=== PATIENT | male | born 1960 | race Caucasian/White ===

== ENCOUNTER 2023-06-07 12:04 | Outpatient (CLI) | payer OTHER, SELFPAY ==
--- NOTE | ~2023-06-07 | XR_ITS ---
EXAMINATION: XR chest 2V DATE: 06/07/2023 13:54 INDICATION: Malignant neoplasm of the prostate TECHNIQUE: PA and lateral views of the chest are obtained. COMPARISON: 04/11/2016 FINDINGS: The lungs are free of acute opacities. No pleural effusion or pneumothorax. The cardiomedia stinal silhouette is normal. The visualized bones and soft tissues are unremarkable. IMPRESSION: 1. No acute cardiopulmonary abnormality. Reviewed, dictated and finalized at location L.
--- NOTE | 2023-06-07 13:23 | ECG_ITS ---
Measurements Intervals [place] Rate: 56 P: 73 NE: 156 QRS: -2 QRSD: 89 T: 39 QT: 412 QTc: 400 Interpretive Statements SINUS BRADYCARDIA CANNOT RULE OUT SEPTAL INFARCT, AGE INDETERMINATE BASELINE ARTIFACT- I, III, AVL, V4-V6 ABNORMAL ECG NO PREVIOUS ECG AVAILABLE FOR COMPARISON Electronically Signed On 06-07-2023 13:56:03 CDT by Mauro Rajput D.O.
[2023-06-07 14:08] LABS: Basophils Absolute Auto 0.1 K/mm3 (0.0-0.1); Basophils Percent Auto 1.1 % (0.2-1.2); Eosinophils Absolute Auto 0.3 K/mm3 (0-0.3); Eosinophils Percent Auto 4.4 % (0-4.4); Hematocrit 41.2 % (42.0-52.0); Hemoglobin 13.8 g/dL (14.0-18.0); Immature Granulocyte Absolute 0.02 K/mm3 (0.00-0.031); Immature Granulocyte Percent A 0.3 % (0-0.5); Lymphocytes Absolute Auto 2.58 K/mm3 (0.9-3.2); Lymphocytes Percent Auto 34.1 % (18.3-44.2); Mean Corpuscular HGB Conc 33.5 g/dl (32-36); Mean Corpuscular Hemoglobin 29.7 pg (26-34); Mean Corpuscular Volume 88.8 fl (80-100); Mean Platelet Volume 8.4 fl (7.4-10.4); Monocytes Absolute Auto 0.6 K/mm3 (0.1-0.6); Monocytes Percent Auto 7.9 % (2.6-8.5); Neutrophils Percent Auto 52.2 % (45.5-73.1); Platelet Count Result 258 k/mm3 (150-375); Red Blood Count 4.64 M/mm3 (4.6-6.20); Red Cell Distribution Width 12.8 % (11.5-14.5); White Blood Count 7.6 K/mm3 (4.5-10.0)
[2023-06-07 14:10] LABS: Appearance Urine Clear (Clear); Bilirubin Urine Negative (Negative); Blood Urine Negative (Negative); Color Urine Yellow (Yellow); Glucose Urine UA Negative (Negative); Ketones Urine Negative (Negative); Leukocyte Esterase Ur Negative LEU/UL (Negative); Nitrate Urine Negative (Negative); Protein Urine Negative (Negative); Specific Grav Ur 1.021 (1.001-1.035); Urobilinogen Urine 0.2 mg/dL (<2.0); pH Urine 5.5 (5.0-9.0)
[2023-06-07 14:14] LABS: Add Urine Microscopic? NO
[2023-06-07 14:19] LABS: Prothrombin Time 13.4 Seconds (11.1-14.7)
[2023-06-07 14:20] LABS: Partial Thromboplastin Time 28.9 SECONDS (22.3-36.8)
[2023-06-07 14:55] LABS: Alanine Aminotransferase 25 U/L (6-50); Albumin Level 4.7 g/dL (3.5-5.1); Alkaline Phosphatase 60 U/L (38-126); Anion Gap 9 mmol/L (8-16); Aspartate Amino Transferase 22 U/L (17-59); Bilirubin,Total 0.6 mg/dL (0.2-1.3); Blood Urea Nitrogen 22 mg/dL (9-20); Calcium 9.1 mg/dL (8.4-10.2); Carbon Dioxide 26 mmol/L (22-30); Chloride 101 mmol/L (98-107); Estimated Glomerular Filt Rate > 60; Glucose 96 mg/dL (65-110); Potassium 3.9 mmol/L (3.4-5.0); Sodium 136 mmol/L (137-145)
== END 2023-06-07 12:05 | disposition home or self-care (01) ==
LOC: ANHSURGERY 12:09
PROVIDERS: PCP Family Medicine; Visit Provider Urology
DX: C61 Malignant neoplasm of prostate (principal); Z01.818 Encounter for other preprocedural examination
CPT/HCPCS: 36415; 71046; 80053; 81003; 85025; 85610; 85730; 86850; 86900; 86901; 93005

== ENCOUNTER 2023-06-14 00:33 | Day surgery (SDC) | payer OTHER, SELFPAY ==
[2023-06-07 12:25] VITALS: BP 127/91; PULSE 65; RESP 16; TEMP 36.9; O2SAT 100; BMI 23.8
--- NOTE | 2023-06-07 12:37 | PC.NURSE ---
Report to the Outpatient Waiting Room, entrance under the green pavilion located off [facility], at time __6:00AM on date __06/14/23 . Planned Procedure Time: ___7:30AM . Time changes happen often and if your time is changed the preop area will call you the afternoon before. - You and your visitor will be asked to self-screen and do not enter if you have any COVID symptoms. - A mask is optional within the hospital at this time. Patients may have clear liquids (water, carbonated beverages, clear teas, apple juice) until 3 hours prior to surgery with a maximum of 20 ounces. - No food from midnight until time of surgery. Take the following medications with a SIP of water the morning of surgery: __NONE DO NOT STOP ANY OF YOUR OTHER PRESCRIPTION MEDICATIONS PRIOR TO SURGERY ?EXCEPT THE FOLLOWING Medications to discontinue per physician ____HOLD ALL VITAMINS/SUPPLEMENTS 7 DAYS PRE-OP PER DR BARFIELD Date to take last dose___06/07/[address] BARFIELD Please no make-up, nail brit[place] virgin islander, hairspray, perfume, deodorant, or body powder the day of surgery. No jewelry (including any body piercings) or valuables the day of surgery, leave them at home. Please take a shower or bath the night before, or the morning of, surgery with an antibacterial soap. Wear comfortable, loose fitting clothing. - Jewelry must be removed prior to entering the operating room. Rings and piercings that are not removed may be cut off. - The hospital will not accept responsibility for valuables. - Please leave all valuables, including medications, at home the day of surgery. If you are going home after surgery, a licensed canal driver must drive you home. - NO public transportation without another adult if you receive anesthesia. - We recommend that an adult stay with you for 24 hours following discharge. - We also recommend that you do not drive, make important decision, drink alcoholic beverages, or take any drugs that were not prescribed by your health care provider for at least 24 hours after your discharge time. Follow any additional instructions given to you from your surgeon. If you or anyone in your household have experienced Covid symptoms in the past week, please notify your surgeon or the nurse liaison at the phone number below for possible testing. Telephone instructions given to _PATIENT & WIFE and asked if any additional questions and then verbalized understanding. Patient advised to call surgeon office or pre surgery nurse liaison [phone] if any additional questions.
--- NOTE | 2023-06-07 15:42 | P.HP_ITS ---
H&P: HPI History of Present Illness Date/Time: 06/07/23 15:42 Chief Complaint: Prostate cancer Narrative: 62-year-old male was found to have a PSA of 7.9 in October 2022. Initial prostate ultrasound and biopsy after a prostate MRI revealed adenocarcinoma in 3 of 12 random cores and all 3 region of interest cores. Lala score was 3+3=6 and 3+4=7. This was consistent with a favorable intermediate risk prostate cancer in initial decision was to proceed with active surveillance. Since that time he has been started on a monoclonal antibody for multiple sclerosis. Follow-up prostate MRI then showed a new PI-RADS 4 lesion which is not presently been seen. After reconsider he now elects to proceed with robotic assisted radical prostatectomy with bilateral pelvic lymphadenectomy. He is aware the risks including, but not limited to, adverse cardiopulmonary events, rectal injury, urinary incontinence and erectile dysfunction. Review of Systems Cardiovascular: Cardiovascular: Denies chest pain, Denies lightheadedness, Denies palpitations and Denies dyspnea Respiratory: Respiratory: Denies dyspnea Gastrointestinal: Gastrointestinal: Denies diarrhea, Denies nausea and Denies vomiting Genitourinary: Genitourinary: Denies hematuria and Denies dysuria Integumentary/Breasts: Comments: Hx. multiple sclerosis Endocrine: Endocrine: Denies palpitations PMFSH Social History Social History Smoking status: Never smoker Alcohol intake: current Drinks per week: 14 Substance use: never Living arrangements: with family Additional living arrangements comments: Spiritual care concerns: Yes Meds Home Medications and Allergies Home Medications Medication Instructions Recorded Confirmed Type cholecalciferol (vitamin D3) 125 125 mcg PO DAILY 06/07/23 06/07/23 History mcg (5,000 unit) capsule multivit with minerals-iron 18 1 tablet PO DAILY 06/07/23 06/07/23 History mg-folic ac 400 mcg-vit K 25 mcg tablet (Adults Multivitamin) ocrelizumab 30 mg/mL intravenous 600 mg IV [id number] 06/07/23 06/07/23 History solution (Ocrevus) rosuvastatin 5 mg tablet 5 mg PO HS 06/07/23 06/07/23 History Allergies Allergy/AdvReac Type Severity Reaction Status Date / Time No Known Allergies Allergy Unverified 06/07/23 12:19 Vital Signs Vital Signs - 24 hr 06/07/23 12:25 Temperature 98.4 F Pulse Rate 65 Respiratory Rate 16 Blood Pressure 127/91 H Pulse Oximetry 100 Oxygen Delivery Room Air Exam Const: General: no acute distress Resp: Effort & Inspection: normal respiratory effort GI: Inspection: non-distended GI Palp: No abdominal tenderness and No Guarding due to palpation present (GI) Auscultation: normal bowel sounds Assessment and Plan Assessment and plan (1) Prostate cancer: Code(s): C61 - Malignant neoplasm of prostate Status: Acute Assessment and Plan: * Robotic assisted laparoscopic prostatectomy with bilateral pelvic lymphadenectomy
[2023-06-14] VITALS (11 sets, daily range): BP systolic 102–132; BP diastolic 71–88; PULSE 61–103; RESP 14–20; TEMP 36.2–36.7; O2SAT 96–100; BMI 23.4
--- NOTE | 2023-06-14 06:38 | WPDHPUPDATE1 ---
History and Physical Update Update Date/Time: 06/14/23 06:38 History and Physical has been reviewed, including an updated exam of the patient. There are NO changes in the patient's condition. Risks, benefits, and alternatives have been discussed and questions answered. Patient agrees to proceed with procedure.
--- NOTE | 2023-06-14 06:39 | WPDANESEPPF ---
Anes - Initial Pre Proc Eval Procedure: Operation Date: 06/14/23 07:30 Proposed Procedures p Robotic Assisted Laparoscopic Prostatectomy with Bilateral Pelvic Lymph Node Dissection - Moshe Rios MD Date/Time: 06/14/23 06:39 Surgeon: Moshe Rios MD Pre Op Diagnosis: prostate CA Patient Data Age: 62 Gender: M Height: 1.71 m Weight: 70 kg Last Vital Signs Temp 36.9 C 06/07/23 12:25 Pulse 65 06/07/23 12:25 Resp 16 06/07/23 12:25 BP 127/91 H 06/07/23 12:25 Pulse Ox 100 06/07/23 12:25 O2 Del Method Room Air 06/07/23 12:25 Allergies Allergy/AdvReac Type Severity Reaction Status Date / Time No Known Allergies Allergy Unverified 06/14/23 06:18 Home Medications Medication Instructions Recorded Confirmed Type cholecalciferol (vitamin D3) 125 125 mcg PO DAILY 06/07/23 06/14/23 History mcg (5,000 unit) capsule multivit with minerals-iron 18 1 tablet PO DAILY 06/07/23 06/14/23 History mg-folic ac 400 mcg-vit K 25 mcg tablet (Adults Multivitamin) ocrelizumab 30 mg/mL intravenous 600 mg IV [id number] 06/07/23 06/07/23 History solution (Ocrevus) rosuvastatin 5 mg tablet 5 mg PO HS 06/07/23 06/14/23 History Patient hx anesthesia problems: none Family hx anesthesia problems: none Results Review: All pre-operative results and documents have been reviewed as part of the pre-operative evaluation. [facility] Past Medical History Medical History (Updated 06/14/23 @ 06:40 by Zeyad Gudino MD) Multiple sclerosis Social History Social History Smoking status: Never smoker Alcohol intake: current Drinks per week: 14 Substance use: never Living arrangements: with family Additional living arrangements comments: Spiritual care concerns: Yes Anes - Eval Final PreProcedure Day of Procedure 06/14/23 06:39 Patient weight: normal Heart: regular rate and rhythm Lungs: clear to auscultation Airway: Mallampati scale class II Neurological: alert and oriented Last oral intake: >/= 8 hours ASA classification: III Emergent: no Anesthetic plan: proceed Anesthesia type and monitoring: general ETT and standard monitoring Results Review: All pre-operative results and documents have been reviewed as part of the pre-operative evaluation. Informed Consent: The patient's anesthetic plan and its attendant risks and benefits were discussed with the patient/family/POA. Questions were solicited and answers provided to the satisfaction of the patient/family/POA.
[2023-06-14] MEDS: ceFAZolin 2 GM/D5W 50 ML 2 GM/50 ML BAG IVPB (07:27)
--- NOTE | 2023-06-14 10:49 | W.PM.PROC2 ---
Procedure Note - Detailed Date of Procedure 06/14/23 Pre-op Diagnosis Prostate CA Post-op Diagnosis Same Procedure Performed Robotic-assisted, nerve-sparing radical prostatectomy, bilateral pelvic lymphadenectomy Surgeon Moshe Rios MD Pharmacy Clinical Coordinator LAVELLE Briones Anesthesia General Description of Procedure The patient was brought to the operative suite, where he was prepped and draped in routine sterile fashion while in a dorsal lithotomy, deep Trendelenburg position. A supraumbilical 10 mm trocar was placed after insufflation of the abdomen with a Veress needle. Three robotic ports were then placed under direct vision. Two of these were placed in the right lower quadrant - 10 cm and 20 cm lateral to, and in line with, the umbilicus. A third robotic trocar was placed 10 cm to the left of the umbilicus, and 20 cm to the left of the umbilicus, a 12 mm standard laparoscopic trocar was placed to be used as an real estate legal assistant port. Lastly, a 5 mm trocar was placed in the left upper quadrant midway between the umbilicus and the left robotic trocar. Attention was then turned to the prostatectomy. I opted for a posterior approach in this patient. An incision was made in the parietal peritoneum along the posterior bladder/posterior prostate about 2 cm above the reflection of the peritoneum over the anterior rectum. The seminal vesicles and vas deferens were immediately identified. Dissection is undertaken in a fashion so as to avoid electrocautery as much as possible, particularly near the tips of the seminal vesicles. Dissection was also carried out in the midline so as to avoid any encounters with the ureters. The vas deferens and the seminal vesicles were dissected in their entirety to the base of the prostate. The plane anterior to Denoviller's fascia, anterior to the rectum and posterior to the prostate was then developed. I then dropped the bladder by incising the anterior parietal peritoneum just lateral to the median umbilical ligaments bilaterally. The bladder was dropped from the anterior abdominal and pelvic wall. The endopelvic fascia was identified and incised bilaterally, allowing for dissection of the posterior-lateral aspect of the prostate. The puboprostatic ligaments were transected near their origin from the posterior pubic ramus. This posterior lateral dissection of the prostate is also undertaken in a fashion so as to avoid electrocautery as much as possible. The dorsal vein of the penis is then secured with an 0 -Vicryl ligature. Attention is then turned to the bladder neck. The anterior bladder neck is incised at the vesico-prostatic junction. The previously placed urethral catheter was drawn through the urethrotomy. A very small bladder neck was maintained throughout the remainder of this dissection. The posterior bladder neck was incised in a fashion so as to avoid any injury to the ureteral orifices. Again, the small aperture of the bladder neck was maintained. The previously dissected vas deferens and the seminal vesicles were brought through the posterior bladder neck incision. The lateral prostatic pedicles were then carefully dissected from the lateral aspect of the prostate bilaterally. The prostatic pedicles were secured with Weck clips and transected. The neurovascular bundles were carefully dissected from the posterior-lateral aspect of the prostate. The dorsal vein of the penis was incised with electrocautery. Using cold scissors, the urethra was incised. After withdrawing the previously placed urethral catheter, the posterior urethra was sharply incised, as was the rectalurethralis muscle. Attention was then turned to an extended bilateral pelvic lymphadenectomy. The limits of this dissection were similar bilaterally. Specifically, the limits were the bifurcation of the common iliac vein proximally, the inguinal ligament distally, the obturator nerve posteriorly and the anterior aspect to the external iliac artery
[2023-06-14] MEDS: LACTATED RINGERS 1,000 ML 30 ML IV CONT ×2 (10:58)
--- NOTE | 2023-06-14 13:34 | ADMGEN ---
This patient, Mykel Pacheco, was admitted to 3 [facility] Surg Room 309-01. Patient/family oriented to hospital policies and general routines including ID bracelet, bed and alarms, visiting hours, pain management, procedures, bathroom and other care routines, personal items, smoking policy, room service/diet, and visiting hours. Information on how to activate the Rapid Response Team has been discussed. Patient/Family are encouraged to report perceived risks to care and to ask questions if they do not understand what they are told or what they should do.
[2023-06-14] MEDS: HYDROcodone/acetaminophen (*CRX) 5-325 MG TABLET 1 TAB PO ×2 (16:25→20:21)
[2023-06-14] MEDS: ONDANSETRON INJ 4 MG/2 ML VIAL IV PUSH (16:26)
[2023-06-15 00:53] VITALS: BP 113/78; PULSE 76; RESP 12; TEMP 36.9; O2SAT 99
[2023-06-15 05:35] VITALS: BP 123/78; PULSE 84; RESP 14; TEMP 37.3; O2SAT 98
[2023-06-15 06:23] LABS: Hematocrit 33.2 % (42.0-52.0); Hemoglobin 11.2 g/dL (14.0-18.0)
[2023-06-15 06:35] LABS: Anion Gap 2 mmol/L (8-16); Blood Urea Nitrogen 13 mg/dL (9-20); Calcium 8.6 mg/dL (8.4-10.2); Carbon Dioxide 29 mmol/L (22-30); Chloride 103 mmol/L (98-107); Estimated CRCL calculation 81 ml/min; Estimated Glomerular Filt Rate > 60; Glucose 110 mg/dL (65-110); Potassium 3.9 mmol/L (3.4-5.0); Sodium 134 mmol/L (137-145)
--- NOTE | 2023-06-15 07:42 | WPDUROPN2 ---
Progress Note: A&P Assessment and Plan (1) Prostate cancer: Code(s): C61 - Malignant neoplasm of prostate Status: Acute Assessment and Plan: Doing well POD #1 Increase diet/ambulation Likely home later today. Subjective Subjective Date/Time Seen: 06/15/23 07:42 Interval history: Comfortable - should pain and nausea have resolved overnight Review of Systems Cardiovascular: Cardiovascular: Denies chest pain, Denies lightheadedness, Denies palpitations and Denies dyspnea Respiratory: Respiratory: Denies dyspnea Gastrointestinal: Gastrointestinal: Denies diarrhea, Denies nausea and Denies vomiting Genitourinary: Genitourinary: Denies hematuria and Denies dysuria Endocrine: Endocrine: Denies palpitations Exam Const: General: no acute distress Resp: Effort & Inspection: normal respiratory effort GI: Inspection: non-distended GI Palp: No abdominal tenderness and No Guarding due to palpation present (GI) Auscultation: normal bowel sounds Objective Data Vital Signs Vital Signs: Vital Signs - 24 hr 06/14/23 10:48 06/14/23 11:00 06/14/23 11:15 Temperature Pulse Rate 103 H 90 86 Respiratory Rate 16 15 20 Blood Pressure 113/88 117/81 104/77 Pulse Oximetry 99 97 96 Oxygen Delivery Simple Face Mask Room Air Room Air Oxygen Flow Rate 6 06/14/23 11:30 06/14/23 11:45 06/14/23 12:05 Temperature 97.2 F L Pulse Rate 79 77 73 Respiratory Rate 16 16 16 Blood Pressure 111/81 116/80 102/71 Pulse Oximetry 99 100 97 Oxygen Delivery Room Air Room Air Oxygen Flow Rate 06/14/23 12:35 06/14/23 13:35 06/14/23 14:00 Temperature 97.2 F L 97.2 F L 97.2 F L Pulse Rate 73 73 73 Respiratory Rate 16 16 16 Blood Pressure 108/79 115/81 115/81 Pulse Oximetry 97 97 97 Oxygen Delivery Oxygen Flow Rate 06/14/23 20:55 06/15/23 00:53 06/15/23 05:35 Temperature 98.1 F 98.4 F 99.2 F Pulse Rate 95 76 84 Respiratory Rate 14 12 14 Blood Pressure 132/86 113/78 123/78 Pulse Oximetry 99 99 98 Oxygen Delivery Oxygen Flow Rate Intake/Output Intake/Output: Intake & Output 09/26/23 06/13/23 06/14/23 06/15/23 23:59 23:59 23:59 23:59 Intake Total 2150 750 Output Total 340 750 Balance 1810 0 Meds/Results Medications: Active Medications Generic Name Dose Route Start Last Admin Trade Name Freq PRN Reason Stop Dose Admin Hydrocodone Bitart/Acetaminophen 1 tab 06/14/23 14:22 06/14/23 20:21 Hydrocodone/Acetaminophen (*Crx) 5-325 Mg Tablet PO 1 tab Q4H PRN Administration Pain Rated 4-6 Fentanyl Citrate 25 mcg 06/14/23 06:45 Fentanyl Citrate Inj (*Crx) 100 Mcg/2 Ml Vial IV PUSH Q2M PRN Pain Ondansetron HCl 4 mg 06/14/23 14:24 06/14/23 16:26 Ondansetron Inj 4 Mg/2 Ml Vial IV PUSH 4 mg Q6H PRN Administration Nausea Labs Labs: Laboratory Results - last 24 hr 06/15/23 06:02 Hgb 11.2 L Hct 33.2 L Sodium 134 L Potassium 3.9 Chloride 103 Carbon Dioxide 29 Anion Gap 2 L BUN 13 D Creatinine 0.80 Estim Creat Clear Calc 81 Estimated GFR > 60 Glucose 110 Calcium 8.6
[2023-06-15] MEDS: HYDROcodone/acetaminophen (*CRX) 5-325 MG TABLET 1 TAB PO ×2 (08:28→12:24)
--- NOTE | 2023-06-15 09:07 | WPDANESPN ---
Anes - Prog Note Post-Op Date/Time: 06/15/23 09:07 Cardiovascular status: normal Respiratory status: normal Airway patency: baseline Mental status: baseline Post-Op hydration status: normal Vital Signs: Last Vital Signs Temp 37.3 C 06/15/23 05:35 Pulse 84 06/15/23 05:35 Resp 14 06/15/23 05:35 BP 123/78 06/15/23 05:35 Pulse Ox 98 06/15/23 05:35 O2 Del Method Room Air 06/14/23 11:45 O2 Flow Rate 6 06/14/23 10:48 Pain Score (VAS): 10 I/O: Intake & Output 06/14/23 06/15/23 06/15/23 23:59 07:59 15:59 Intake Total 1200 750 Output Total 300 750 Balance 900 0 Laboratory Tests 06/15/23 06:02 06/15/23 06:02 06/15/23 06:02 Hgb 11.2 L Hct 33.2 L Sodium 134 L Potassium 3.9 Chloride 103 Carbon Dioxide 29 Anion Gap 2 L BUN 13 D Creatinine 0.80 Estim Creat Clear Calc 81 Estimated GFR > 60 Glucose 110 Calcium 8.6 Post-procedural complaints: none Patient Feedback: Patient satisfied with anesthetic care.
[2023-06-15 09:32] VITALS: BP 128/85; PULSE 74; RESP 16; TEMP 36.6; O2SAT 100
[2023-06-15 13:54] VITALS: BP 131/88; PULSE 84; RESP 14; TEMP 36.7; O2SAT 98
--- NOTE | 2023-06-15 15:46 | PM.DS ---
DS: Admitting Diagnosis Discharge Date 06/15/2023 Admitting Diagnosis Prostate cancer DS: Discharge Diagnosis Discharge Diagnosis Plan Prostate cancer DS: Summary Hospital Course Hospital Course: This patient was admitted on the morning of his planned robotic prostatectomy. This procedure was uneventful, as was his postoperative course. By the evening of the procedure he was sitting at the bedside in tolerating a liquid diet. The following morning he was ambulating freely and tolerating regular food. His catheter drainage remained essentially clear throughout. His postoperative hemoglobin and serum creatinine were unremarkable. At the time of discharge he has been instructed in appropriate care for his Allen catheter with both a leg bag and bedside bag. He will be discharged with plans to follow-up in 1 week with a cystogram. Time Spent with Patient Time attestation: Total time spent providing and/or coordinating discharge services: DS: Data Data Completed and Pending Pending studies at discharge: Pending at discharge 06/14/23 09:28 Surgical [PTH] Routine Labs on day of discharge: Labs from last 24 hours 06/15/23 06:02 Hgb 11.2 L Hct 33.2 L Sodium 134 L Potassium 3.9 Chloride 103 Carbon Dioxide 29 Anion Gap 2 L BUN 13 D Creatinine 0.80 Estim Creat Clear Calc 81 Estimated GFR > 60 Glucose 110 Calcium 8.6 Discharge Plan Discharge Patient Disposition: Home, Self-Care Discharge Instructions: 1) Allen catheter -> leg bag / bedside bag at night. 2) No lifting/straining >15lbs. x3 weeks. 3) No driving x1-week. 4) Resume normal, pre-operative diet. 5) My office will contact regarding follow-up in 1-week with cystogram. Stand Alone Forms: General Discharge Instructions Discharge Orders: Discharge Order (Routine); Ordered 06/15/23 Ordered By: Moshe Rios Discharge Medications: New docusate sodium [Colace] 100 mg capsule 100 mg PO DAILY Qty: 30 0RF hydrocodone-acetaminophen 5-325 mg tablet 1 - 2 tablet PO Q6H PRN (Reason: pain) Qty: 20 0RF sulfamethoxazole-trimethoprim 800-160 mg tablet 1 tablet PO Q12H Qty: 6 0RF hyoscyamine sulfate 0.125 mg tablet 0.125 mg PO Q6H PRN (Reason: bladder spasms) Qty: 20 2RF Continued rosuvastatin 5 mg tablet 5 mg PO HS cholecalciferol (vitamin D3) 125 mcg (5,000 unit) Capsule 125 mcg PO DAILY Adults Multivitamin 18 mg iron-400 mcg-25 mcg Tablet 1 tablet PO DAILY Ocrevus 30 mg/mL Solution 600 mg IV [id number] Rx Instructions: LAST INFUSION 03/2023
== END 2023-06-15 16:50 | disposition home or self-care (01) ==
LOC: ANHSURGERY 11:00 → ANH3MEDSUR 12:37
PROVIDERS: PCP Family Medicine; Visit Provider Urology
PROC: 0VT04ZZ Resection of Prostate, Percutaneous Endoscopic Approach (ICD-10-PCS; CPT 55867; principal; 2023-06-14 07:30)
DX: C61 Malignant neoplasm of prostate (principal); G35 Multiple sclerosis; Z79.891 Long term (current) use of opiate analgesic; Z79.620 Long term (current) use of immunosuppressive biologic
CPT/HCPCS: 55866; 38571; S2900; 36415; 71046; 80048; 80053; 81003; 85014; 85018; 85025; 85610; 85730; 86850; 86900; 86901; 88305; 88309; 88342; 93005; A9270; J0330; J0690; J1100; J1170; J2250; J2405; J2704; J3010; J7120; Q9968

== ENCOUNTER 2023-06-22 11:45 | Outpatient (CLI) | payer OTHER, SELFPAY ==
--- NOTE | ~2023-06-22 | XR_ITS ---
EXAMINATION: CYSTOGRAM DATE: 06/22/2023 12:39 INDICATION: Status post prostatectomy for prostate cancer. TECHNIQUE: Initial fire safety manager radiograph of the pelvis was performed. There was retrograde administration of Omnipaque 350 mixed with saline contrast into patient's existing Allen catheter. Fluoroscopic jam ges of the pelvis were obtained. A post-void image was also performed. A single overhead radiographs and 18 fluoroscopic images were recorded. Fluoroscopy exposure time was 0.4 minutes. Total DAP was 4. 669 Gycm^2 FINDINGS: Filling of the bladder which appears normal. No extraluminal contrast extravasation at the prostatect [place] bed. No vesicoureteral reflux. IMPRESSION: 1. No bladder leak. Reviewed, dictated and finalized at location A. IMPRESSION: 1. No bladder leak.
== END 2023-06-22 11:46 | disposition home or self-care (01) ==
PROVIDERS: PCP Family Medicine; Visit Provider Urology
DX: Z08 Encounter for follow-up examination after completed treatment for malignant neoplasm (principal); Z90.79 Acquired absence of other genital organ(s); Z85.46 Personal history of malignant neoplasm of prostate
CPT/HCPCS: 51600; 74430; Q9967